=== PATIENT | female | born 2000 | race Caucasian/White ===

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

== ENCOUNTER 2021-02-13 15:08 | Emergency (ER) | payer BC ==
--- NOTE | 2021-02-13 19:05 | ER ---
Nurse's Notes [facility] Name: Neli Ohara Age: 20 yrs Sex: Female : 2000 Arrival Date: 02/13/2021 Time: 15:08 Bed Waiting Private MD: Diagnosis: Presentation: 02/13 15:56 Chief complaint: Patient states: Started loosing eye sight at 1400 today while working ll1 outside at her job. States its like she saw "static" in her R eye only for about 30 min. Had pressure behind R eye at that time. Now just has a CARMONA, can see fine. About 11 weeks . G1, P0. No vaginal bleeding. States she had nausea this morning, that resolved with zofran. No N/V/D. Eating/drinking well. Coronavirus screen: Client denies travel out of the [place] in the last 14 days. At this time, the client does not indicate any symptoms associated with coronavirus-19. Ebola Screen: Patient denies travel to an Ebola-affected area in the 21 days before illness onset. Initial Sepsis Screen: Does the patient meet any 2 criteria? HR > 90 bpm. No. Patient's initial sepsis screen is negative. Does the patient have a suspected source of infection? No. Patient's initial sepsis screen is negative. Risk Assessment: Do you want to hurt yourself or someone else? Patient reports no desire to harm self or others. Onset of symptoms was February 13, 2021. 15:56 Method Of Arrival: Ambulatory ll1 15:56 Acuity: VALDEMAR 3 ll1 Historical: - Allergies: 16:00 No Known Allergies; ll1 - PMHx: 16:00 None; ll1 - PSHx: 16:00 None; ll1 - Immunization history:: Flu vaccine is not up to date. - Social history:: Smoking status: Patient denies any tobacco usage or history of. Vital Signs: 15:56 BP 155 / 76; Pulse 94; Resp 17; Temp 98.0; Pulse Ox 99% ; Weight 69.85 kg; Height 5 ft. ll1 4 in. (162.56 cm); Pain 7/10; 15:56 Body Mass Index 26.43 (69.85 kg, 162.56 cm) 1 ED Course: 15:08 Patient arrived in ED. am2 16:00 Triage completed. ll1 16:00 Arm band placed on Patient notified of wait time. ll1 Administered Medications: No medications were administered Outcome: 19:04 Patient left the ED. 1 Signatures: Anisha Aguila Lynsay, RN RN 1
[2021-02-13 19:45] VITALS: BP 155/76; TEMP 98; O2SAT 99
== END 2021-02-13 19:04 | disposition left against medical advice (07) ==
LOC: ER 15:08
DX: Z02.9 Encounter for administrative examinations, unspecified (principal)
CPT/HCPCS: 99281

== ENCOUNTER 2022-12-26 15:23 | Emergency (ER) | payer BC ==
--- OUTSIDE RECORDS SUMMARY | 2022-12-26 15:26 | XMS REPORT | Continuity of Care Document ---
:2000 Author Organization [facility] t Address [address] [place] [address] Care Team Providers Name Role Phone Hina Patrick Attending Clinician Unavailable Mary Townsend Attending Clinician Hina Patrick Admitting Clinician Unavailable Payers Payer Name Policy Type Policy Number Effective Date Expiration Date S ource Problems This patient has no known problems. Allergies, Adverse Reactions, Alerts Allergy Allergy Status Severity Reaction(s) Onset Inactive Treating Comm ents Source Name Type Date Date Clinician No Known DA Active U 2020-11 [facility] No Known DA Active U 2020-11 [facility] NO KNOWN Drug Active Univers ALLERGIE Class ity of S [facility] Social History Social Habit Start Date Stop Date Quantity Comments Source Exposure [facility] SARS[facility]2 (event) Medica l Branch Sex Assigned At [birth year] [facility] 00:00:00 00:00:00 [facility] Smoking Status Start Date Stop Date Source Unknown if ever smoked [facility] Medications Ordered Filled Start Stop Current Ordering Indication Dosage Frequency Signature Comments Components Source Medication Medication Date Date Medication? Clinician (SIG) Name Name NaCl 0.9% 2020- No 1000mL at 999 Uni vers (NS) bolus 4-12 04-12 mL/hr, ity of infusion 00:45: 01:40 1,000 mL, Terrance as 1,000 mL 00 :00 IV Medical Infusion, Branch ONCE, 1 dose, 02/18/21 at 1945, STAT Vital Signs Vital Name Observation Time Observation Value Comments Source Systolic blood 2021-02-19 01:33:00 101 mm[Hg] Univer sity of pressure [facility] Diastolic blood 2021-02-19 01:33:00 61 mm[Hg] Unive rsity [facility] Heart rate 2021-02-19 01:33:00 89 /min [facility] Respiratory rate 2021-02-19 01:33:00 16 /min [facility] Oxygen saturation in 2021-02-19 01:33:00 100 /min [facility] Arterial blood by [facility] Pulse oximetry Branch Body temperature 2021-02-18 23:23:00 37.39 [facility] Body height 2021-02-18 23:23:00 162.6 cm [facility] Body weight 2021-02-18 23:23:00 68.04 kg [facility] BMI 2021-02-18 23:23:00 25.75 kg/m2 [facility] Procedures Procedure Date / Time Performed Performing Clinician Neeru ken [id number] 2021-08-29 00:00:00 [facility] [id number] 2021-08-29 00:00:00 [facility] [id number] 2021-08-29 00:00:00 [facility] COMP. METABOLIC PANEL 2021-02-18 23:37:[address] [facility] ([id number]) [facility] CBC WITH DIFF 2021-02-18 23:37:00 Mary Traylor [facility] URINALYSIS 2021-02-18 23:37:00 Mary Traylor Urv[facility] NOTICE OF PRIVACY 2021-02-18 23:17:25 Doctor Unassigned, No Univ [facility] PRACTICES Name Medical Branch CONSENT/REFUSAL FOR 2021-02-18 23:17:08 Doctor Unassigned, No Un [facility] DIAGNOSIS AND Name Medical Branch TREATMENT Encounters Start End Encounter Admission Attending Care Care Encounter Source Date/Time Date/Time Type Type Clinicians Facility Department ID 2021-09-02 Inpatient ROSAILO Murray LD [id number] [facility] 20:10:00 Hina [facility] 2021-08-28 2021-08-30 Inpatient ROSALIO Murray ERWIN [id number] [facility] 05:15:00 16:40:00 Hina [facility] 2021-02-18 2021-02-18 Emergency Kymberly, K [facility] [id number] Univers 18:18:00 20:41:00 Urvashi Zuleta [id number] i ty [facility] [id number] [facility] [id number] [place] [address] Branch 2021-02-18 2021-02-18 Emergency X [facility] ERT [id number] Univers 18:16:00 18:16:00 ity [facility] Results Test Description Test Time Test Comments Results Result Comments Source AB TREPONEMA 2021-08-28 08:59:00 Test Item Value Reference Range Interpretation Comme nts AB TREPONEMA (test code = TREPAB) NONREACTIVE NONREACTIVE AB HIV 1 08:59:00 Test Item Value Reference Range Interpretation Comments AB HIV 1 2 (test NONREACTIVE NONREACTIVE Done by [facility] code = [id number]) 4th Gen HIV Ag/Ab Combo Screen AG HEPATITIS B [id number] 08:59:00 Test Item Value Reference Range Interpretation Comments AG HEPATITIS B SURFACE (test code NONREACTIVE NONREACTIVE = HBSAG) AB HEPATITIS C [id number] 08:59:00 Test Item Value Reference Range Interpretation Comments AB HEPATITIS C (test code = NONREACTIVE NONREACTIVE HCVAB) SIGNAL TO CUTOFF (test code = <0.02 <0.80 N CUTOFF) CBC W/AUTO [id number] 07:36:00 Test Item Value Reference Range Interpretation Comments WHITE BLOOD CELL (test code = WBC) 12.5 K/mm3 6.5-12.3 H RED BLOOD CELL (test code = RBC) 3.59 M/mm3 3.51-4.69 N HEMOGLOBIN (test code = HGB) 10.7 g/dL 10.1-13.8 N HEMATOCRIT (test code = HCT) 32.1 % 32.5-41.8 L MEAN CELL VOLUME (test code = MCV) 89.4 fL 84.6-96.6 N MEAN CELL HGB (test code = MCH) 29.8 pg 27.3-33.9 N MEAN CELL HGB CONCETRATION (test 33.3 gm/dL 32.0-34.2 N code = MCHC) RED CELL DISTRIBUTION WIDTH (test 12.4 % 12.2-16.3 N code = RDW) PLATELET COUNT (test code = PLT) 169 K/mm3 134-363 N MEAN PLATELET VOLUME (test code = 11.7 fL 9.2-12.7 N MPV) NEUTROPHIL % (test code = NT%) 72.6 % 57.9-77.3 N LYMPHOCYTE % (test code = LY%) 18.0 % 14.5-29.7 N MONOCYTE % (test code = MO%) 6.7 % 3.6-10.2 N EOSINOPHIL % (test code = EO%) 1.4 % 0.0-3.0 N BASOPHIL % (test code = BA%) 0.4 % 0.1-0.9 N NEUTROPHIL # (test code = NT#) 9.1 K/mm3 LYMPHOCYTE # (test code = LY#) 2.3 K/mm3 MONOCYTE # (test code = MO#) 0.8 K/mm3 EOSINOPHIL # (test code = EO#) 0.18 K/mm3 BASOPHIL # (test code = BA#) 0.1 K/mm3 RBC MORPHOLOGY REQUIRED (test code NORMAL NORMAL = RBCM) PLATELET MORPHOLOGY REQUIRED (test NORMAL NORMAL code = PLTMR) COVID 19 Asymptomatic IH [id number] 06:43:00 Test Item Value Reference Range Interpretation Comments COVID 19 NEGATIVE NEGATIVE This test has b een Asymptomatic IH AG authorize d only for the (test code = detection ofpro teins from COVNONPUIAG) SARS-CoV-2, not for any other viruses orpathogens. Ne gative results should be treated as presumptive andconfirmed wi th a molecular assay , if necessary for patientmanageme nt. Negative result s do not rule out COVID- 19 andshould not b e used as the sole basis for treatment orpat ient management deci sions, including infec tion controldecision s. Negative result s should be considered i n thecontext of a patient's recent exposure s, history and thepresence of clinical signs and symptoms consis tent withCOVID-19. T his test has not been FD A cleared or approved; th e test hasbeen authori kenn by FDA under an Emerge ncy Use Authorization(E UA) for use by beckyato yan certified under the CLIA thatmeet the re quirements to perform mode rate, high or waivedcomple xity tests. This jeanne t is authorized for use at thePoint of Car e (POC), i.e., in patien t care settingsoperati ng under a CLIA Certificat e of Waiver, Certifi rosie ofCompliance, o r Certificate of Accreditation. This test is only authori kenn for the duration of thedeclaration that circumstances e xist justifying theauthorizatio n of emergency use o f in vitro diagnostic test sfor detection and/o r diagnosis of CO VID-19 under Mazgtvy27 4(b)(1) of the Act, 21 U.S .C. 360bbb-3(b)(1), unless theauthorizatio n is terminated or r evoked sooner. [id number] 00:26:07 Test Item Value Reference Range Interpretation Comments APPEARANCE (test code = Hazy Clear A 0881306756) COLOR (test code = Yellow Yellow 8435009935) PH (test code = 4.8-8.0 4353719138) SP GRAVITY (test code = 1.003-1.030 6757274117) GLU U QUAL (test code = Normal Normal 1658071321) BLOOD (test code = Negative Negative 1276056874) KETONES (test code = Negative Negative 5107582257) PROTEIN (test code = Negative Negative 2887-8) UROBILIN (test code = 2.0 mg/dL Normal A 6553467992) BILIRUBIN (test code = Negative Negative 0548831961) NITRITE (test code = Negative Negative 8365919779) [place] (test code = Negative Negative 1665340051) RBC/HPF (test code = See_Comment [Autom ated message] 6338379959) The system TIME PLUS Q generated this result transmit andriy reference range : 0 - 3 HPF. The refe rence range was not u sed to interpret th is result as normal/abnormal . WBC/HPF (test code = See_Comment [Autom ated message] 5165579312) The system TIME PLUS Q generated this result transmit andriy reference range : 0 - 5 HPF. The refe rence range was not u sed to interpret th is result as normal/abnormal . BACTERIA (test code = Few Negative A 7841641078) MUCOUS (test code = Slight Negative LPF A 5265633202) SQ EPITH (test code = HPF 0426989105) Lab Interpretation (test Abnormal code = 55956-1) [facility]. METABOLIC PANEL (20594)2021-02-19 00:23:11 Test Item Value Reference Range Interpretation Comments NA (test code = 135 mmol/L 135-145 5448887805) K (test code = 4.0 mmol/L 3.5-5.0 7984565568) CL (test code = 103 mmol/L 98-108 5718765088) CO2 TOTAL (test code = 21 mmol/L 23-31 L 7315526073) AGAP (test code = 2-16 4211107635) BUN (test code = 6 mg/dL 7-23 L 5031285112) GLUCOSE (test code = 72 mg/dL 70-110 3889626850) CREATININE (test code = 0.36 mg/dL 0.50-1.04 L 7922091267) TOTAL BILI (test code = 0.4 mg/dL 0.1-1.9 1430316491) CALCIUM (test code = 9.1 mg/dL 8.6-10.6 9291340293) T PROTEIN (test code = 7.0 g/dL 6.3-8.2 3762771414) ALBUMIN (test code = 4.4 g/dL 3.5-5.0 0564376077) ALK PHOS (test code = 44 U/L 34-122 6619098783) ALTv (test code = 11 U/L 5-35 1742-6) AST(SGOT) (test code = 21 U/L 13-40 6541688196) eGFR (test code = mL/min/1.73m2 7490346515) ANNE-MARIE (test code = ANNE-MARIE) Association of Glomerular Filtration Rate (GFR) and Staging of Kidney Disease* + --+ --+ ------+| GFR (mL/min/1.73 m2) ?| With Kidney Damage ?| ?Without Kidney Damage+ --------+ --------+ +| ?>90 ?| ?Stage one ?| ? Normal ?+ ---+ ---+ -------+| ?60-89 ?| ?Stage two ?| ? Decreased GFR ? + --+ --+ ------+| ?30-59 ?| ?Stage three ?| ? Stage three ? + --+ --+ ------+| ?15-29 ?| ?Stage four ? | ? Stage four ?+ ---+ ---+ -------+| ?<15 (or dialysis) ? ?| ?Stage five ? | ? Stage five ?+ ---+ ---+ -------+ *Each stage assumes the associated GFR level has been in effect for at least three months. ?Stages 1 to 5, with or without kidney disease, indicate chronic kidney disease. Notes: Determination of stages one and two (with eGFR >59mL/min/1.73 m2) requires estimation of kidney damage for at least three months as defined by structural or functional abnormalities of the kidney, manifested by either:Pathological abnormalities or Markers of kidney damage (including abnormalities in the composition of the blood or urine or abnormalities in imaging tests). Lab Interpretation Abnormal (test code = 67410-8) [facility] WITH [id number] 00:01:49 Test Item Value Reference Range Interpretation Comments WBC (test code = See_Comment [Automated 7708-2) message] The sy stem which generated this result transmitted reference range : 4.30 - 11.10 10*3/?L. The reference range was not used to interpret this result as normal/abnormal . RBC (test code = See_Comment L [Automated 000-8) message] The sy stem which generated this result transmitted reference range : 3.93 - 5.25 10*6/?L. The reference range was not used to interpret this result as normal/abnormal . HGB (test code = 11.6 g/dL 11.6-15.0 718-7) HCT (test code = 33.6 % 35.7-45.2 L 4544-3) MCV (test code = 89.1 fL 80.6-95.5 787-2) MCH (test code = 30.8 pg 25.9-32.8 785-6) MCHC (test code = 34.5 g/dL 31.6-35.1 786-4) RDW-SD (test code = 36.3 fL 39.0-49.9 L 20932-0) RDW-CV (test code = 11.3 % 12.0-15.5 L 788-0) PLT (test code = See_Comment [Automated 777-3) message] The sy stem which generated this result transmitted reference range : 166 - 358 10*3/ ?L. The reference r keon was not used to interpret this result as normal/abnormal . MPV (test code = 10.7 fL 9.5-12.9 06717-3) NRBC/100 WBC (test See_Comment [Automat ed code = 2209033798) message] The system which generated this result transmitted reference range : 0.0 - 10.0 /100 WBCs. The refer ence range was not u sed to interpret th is result as normal/abnormal . NRBC x10^3 (test code <0.01 See_Comment [Auto mated = 7069885644) message] The s ystem which generated this result transmitted reference range : 10*3/?L. The reference range was not used to interpret this result as normal/abnormal . GRAN MAT (NEUT) % 67.5 % (test code = 770-8) IMM GRAN % (test code 0.10 % = 9556421953) LYMPH % (test code = 22.9 % 736-9) MONO % (test code = 7.9 % 5905-5) EOS % (test code = 1.2 % 713-8) BASO % (test code = 0.4 % 706-2) GRAN MAT x10^3(ANC) 5.15 10*3/uL 1.88-7.09 (test code = 7393566294) IMM GRAN x10^3 (test <0.03 0.00-0.06 code = 5954516258) LYMPH x10^3 (test code 1.75 10*3/uL 1.32-3.29 = 731-0) MONO x10^3 (test code 0.60 10*3/uL 0.33-0.92 = 742-7) EOS x10^3 (test code = 0.09 10*3/uL 0.03-0.39 711-2) BASO x10^3 (test code 0.03 10*3/uL 0.01-0.07 = 704-7) Lab Interpretation Abnormal (test code = 32948-6) [facility]"
--- NOTE | 2022-12-26 16:29 | ER ---
Nurse's Notes [facility] Name: Neli Ohara Age: 22 yrs Sex: Female : 2000 Arrival Date: 12/26/2022 Time: 15:26 Bed IW2 [facility] MD: Diagnosis: ED Course: 12/26 15:26 Patient arrived in ED. mr 15:26 Karthik Callejas PA is PHCP. cp 15:26 Shanae Camargo MD is Attending Physician. cp 15:55 Patient's name was called from ER [employer]. No response. jl7 16:10 Patient's name was called from ER [employer]. No response. jlConstanza 16:24 Meena Springer, MALU is Primary Nurse. mb9 16:28 Patient's name was called from ER [employer]. No response. jl7 Administered Medications: No medications were administered Outcome: 16:28 Patient left the ED. jl7 Signatures: Meena Newman mr Karthik Callejas PA PA cp Leal, Jahala, RN RN jlMeena Smith RN RN mb9
--- NOTE | 2022-12-27 16:29 | EDPHYS ---
Physician Documentation [facility] Name: Neli Ohara Age: 22 yrs Sex: Female : 2000 Arrival Date: 12/26/2022 Time: 15:26 Bed IW2 Private MD: ED Physician Shanae Camargo MDM: 12/26 16:25 Patient medically screened. cp 16:25 ED course: Patient left prior to evaluation by provider. cp Administered Medications: No medications were administered Disposition Summary: 12/26/22 16:28 Eloped Disposition: Before Triage jl7 Reason: unknown jl7 Signatures: Karthik Callejas PA PA cp Leal, Jahala RN RN jl7
== END 2022-12-26 16:28 | disposition left against medical advice (07) ==
LOC: ER 15:23
DX: Z02.9 Encounter for administrative examinations, unspecified (principal)